=== PATIENT | male | born 1935 | race Caucasian/White ===

== ENCOUNTER 2016-07-02 23:56 | Inpatient (IN) | payer MEDICARE | END 2016-07-22 17:01 | disposition E | DRG 82 | DX: S02.19XA Other fracture of base of skull, initial encounter for closed fracture (principal); J96.02 Acute respiratory failure with hypercapnia; S06.5X9A Traumatic subdural hemorrhage with loss of consciousness of unspecified duration, initial encounter; S06.6X9A Traumatic subarachnoid hemorrhage with loss of consciousness of unspecified duration, initial encounter; Z51.5 Encounter for palliative care; J69.0 Pneumonitis due to inhalation of food and vomit; J44.0 Chronic obstructive pulmonary disease with (acute) lower respiratory infection; E44.0 Moderate protein-calorie malnutrition; N39.0 Urinary tract infection, site not specified; I48.2 Chronic atrial fibrillation; F05 Delirium due to known physiological condition; I50.22 Chronic systolic (congestive) heart failure; I11.0 Hypertensive heart disease with heart failure; S02.119A Unspecified fracture of occiput, initial encounter for closed fracture; B96.20 Unspecified Escherichia coli [E. coli] as the cause of diseases classified elsewhere; S01.01XA Laceration without foreign body of scalp, initial encounter; W10.8XXA Fall (on) (from) other stairs and steps, initial encounter; I25.5 Ischemic cardiomyopathy; D50.9 Iron deficiency anemia, unspecified; G47.33 Obstructive sleep apnea (adult) (pediatric); K21.9 Gastro-esophageal reflux disease without esophagitis; E29.1 Testicular hypofunction; N40.1 Benign prostatic hyperplasia with lower urinary tract symptoms; R33.9 Retention of urine, unspecified; M10.9 Gout, unspecified; E78.5 Hyperlipidemia, unspecified; M35.3 Polymyalgia rheumatica; E55.9 Vitamin D deficiency, unspecified; L72.0 Epidermal cyst; N52.9 Male erectile dysfunction, unspecified; E03.9 Hypothyroidism, unspecified; Y92.015 Private garage of single-family (private) house as the place of occurrence of the external cause; Z79.01 Long term (current) use of anticoagulants; Z95.810 Presence of automatic (implantable) cardiac defibrillator; Z87.891 Personal history of nicotine dependence; Z90.2 Acquired absence of lung [part of]; Y95 Nosocomial condition ==